=== PATIENT | male | born 1960 | race Caucasian/White ===

== ENCOUNTER 2016-11-18 11:32 | Emergency (ER) | payer MEDICAID, OTHER ==
[~2016-11-18] VITALS: Ht 165.1 cm; Wt 75.5 kg
[2016-11-18 11:44] VITALS: Ht 165.1 cm; Wt 75.5 kg
[2016-11-18] MEDS ORDERED: IBUPROFEN 600 MG TAB PO ONE (12:30)
--- NOTE | 2016-11-18 12:30 | ERD ---
ER Documentation Chief Complaint Date/Time DATE: 11/18/16 TIME: 12:27 Chief Complaint left hand laceration from a knife HPI 56-year-old otherwise healthy male presents to the emergency department following an injury which occurred while working today. Patient states that he was cutting drywall on a ceiling he accidentally lacerated his left dorsum of hand with a sharp knife. Patient states the laceration began bleeding immediately and has continued to bleed since. Patient rates his pain currently as a 4 out of 10 constant burning pain which is exacerbated by touch. Patient states he does not believe there is any piece of drywall or other foreign body that entered the wound. Patient denies any numbness, tingling, loss of sensation, wrist, or finger injury. Patient is unaware when his last tetanus shot was. ROS All systems reviewed and are negative except as per history of present illness. Medications Home Meds Active Scripts Cephalexin* (Keflex*) 500 Mg Capsule, 500 MG PO QID for 7 Days, CAP Prov:ARIEL HARRISON PA-C 11/18/16 Hydrocodone/Acetaminophen ([place] 10-325 Tablet) 1 Each Tablet, 1 TAB PO Q6H Y for PAIN, #7 TAB Prov:ARIEL HARRISON PA-C 11/18/16 Naproxen* (Naprosyn*) 500 Mg Tablet, 500 MG PO BID Y for PAIN AND/OR INFLAMMATION, #30 TAB Prov:ARIEL HARRISON PA-C 11/18/16 PMhx/Soc Medical and Surgical Hx: pt denies Medical Hx, pt denies Surgical Hx Physical Exam Vitals Vital Signs Date Time Temp Pulse Resp B/P Pulse Ox O2 Delivery O2 Flow Rate FiO2 11/18/16 11:44 98.5 94 18 169/94 97 Physical Exam Const: Well-developed, well-nourished, in no acute distress. Head: Atraumatic Eyes: Normal Conjunctiva ENT: Normal External Ears, Nose and Mouth. Neck: Full range of motion..~ No meningismus. Resp: Clear to auscultation bilaterally Cardio: Regular rate and rhythm, no murmurs Abd: Soft, non tender, non distended. Normal bowel sounds Skin: 1 cm linear laceration located to the dorsum of the left hand superior to the anatomical snuffbox. Wound is actively bleeding. No evidence of foreign body. Full range of motion performed at left wrist, MCP, PIP and DIP joints of the left upper extremity. Radial, median, and ulnar motor and sensory nerve function intact. 2. discrimination along radial and ulnar aspects of all 5 fingers. Brisk capillary refill. Radial pulse 1+ equal and bilateral. No cyanosis. No overlying cellulitis or evidence of abscess. Minor tenderness to palpation. No petechiae or rashes Back: No midline or flank tenderness Ext: No cyanosis, or edema Neur: Awake and alert Psych: Normal Mood and Affect Results 24 hrs Current Medications Medications (Trade) Dose Ordered Sig/Iglesia Route PRN Reason Start Time Stop Time Status Last Admin Dose Admin Ibuprofen (Motrin) 600 mg ONCE ONCE PO 11/18/16 12:30 11/18/16 12:31 DC 11/18/16 12:24 Lidocaine/ Epinephrine (Xylocaine 1%/ Epi (Mdv) 20 ml) 20 ml ONCE ONCE INJ 11/18/16 13:00 11/18/16 13:01 DC 11/18/16 13:14 Diphtheria/ Tetanus/Acell Pertussis (Adacel) 0.5 ml ONCE ONCE IM* 11/18/16 13:00 11/18/16 13:01 DC 11/18/16 13:15 Procedures/MDM PROCEDURE: XR Left Hand. CLINICAL INDICATION: Trauma with laceration. Left hand pain. TECHNIQUE: Three views. Frontal lateral and oblique images of the left hand were obtained. COMPARISON: No prior studies are available for comparison. FINDINGS: There is no fracture or dislocation. There is soft tissue swelling overlying the wrist. Articular surfaces are intact. There is no lytic or blastic lesion. There is no radiopaque foreign body. IMPRESSION: 1. Soft tissue swelling overlying the wrist. 2. Otherwise unremarkable images of the left hand with no fracture demonstrated. RPTAT: QQ .Vineet Morrison MD, MD Date Time Electronically viewed and signed by .Vineet Morrison MD, MD on 11/18/2016 14:11 .R/ CC: HARRISON,ARIEL M. PA-C X-ray Hand 3V interpreted by radiologist: Scaphoid: Normal Bones: No fracture Joints: No dislocation Foreign body: None Laceration Repair by me: Anesthesia: 1% lidocaine locally Location: Dorsum of left hand Tendon/Joint/Nerves: No obvious injury Foreign body: None detected after copious irrigation and exploration Technique: Simple Interrupted Sutures. 5-0 Prolene Complexity: No subcutaneous sutures/mucosal repair/ edge excision Post Closure Length: 1.5 cm Patient's bleeding was easily controlled in the department and there is no indication of anemia. No evidence of compartment syndrome, neurologic injury, vascular injury, open joint, tendon laceration, or foreign body. Patient is appropriate for outpatient follow up. 48 hour wound check. Scar minimization instructions given. Patient's pain well controlled while in the emergency department. X-rays negative for fracture. No evidence of tendon laceration as patient can perform full range of motion. Patient's sensation is intact and appears to have good perfusion of the distal extremity. Patient will be placed in a splint and instructions were given to return in 48 hours for a wound check. I will provide the patient with full active antibiotic therapy. Patient received tetanus booster while in the emergency department today. Strict return precautions discussed. Based on patient's history of present illness and physical examination the decision was made to discharge. The patient was re-evaluated after ED treatment and stabilizing measures, and symptoms have improved. There is no evidence of life threatening injuries or illnesses at this time. On re-examination, patient resting in no distress, stable vital signs, reports feeling better and safe for discharge with outpatient follow up with PMD in 1-2 days. Patient given return precautions. ARIEL HARRISON PA-C Nov 18, 2016 12:30
[2016-11-18] MEDS ORDERED: DIPHTH/TET/ACEL PERTUSS (ADULT) 0.5 ML VIAL IM* ONE (13:00)
[2016-11-18] MEDS ORDERED: LIDOCAINE 1%/EPI (MDV) 20 ML INJ INJ ONE (13:00)
--- NOTE | 2016-11-18 14:11 | RADRPT ---
PROCEDURE: XR Left Hand. CLINICAL INDICATION: Trauma with laceration. Left hand pain. TECHNIQUE: Three views. Frontal lateral and oblique images of the left hand were obtained. COMPARISON: No prior studies are available for comparison. FINDINGS: There is no fracture or dislocation. There is soft tissue swelling overlying the wrist. Articular surfaces are intact. There is no lytic or blastic lesion. There is no radiopaque foreign body. IMPRESSION: 1. Soft tissue swelling overlying the wrist. 2. Otherwise unremarkable images of the left hand with no fracture demonstrated. RPTAT: QQ .Vineet Morrison MD, Date Time Electronically viewed and signed by .Vineet Morrison MD, on 11/18/2016 14:11 .R/
[2016-11-18] MEDS ORDERED: NAPR-260 PO (14:25)
[2016-11-18] MEDS ORDERED: HYDR-902 PO (14:25)
[2016-11-18] MEDS ORDERED: CEPH-443 PO (14:25)
== END 2016-11-18 14:49 | disposition home or self-care (01) ==
LOC: FTE 11:32
DX: S61.412A Laceration without foreign body of left hand, initial encounter (principal); W26.0XXA Contact with knife, initial encounter; Y92.9 Unspecified place or not applicable; Z23 Encounter for immunization
CPT/HCPCS: 12001; 73130; 90471; 90715; Z7502; Z7610

== ENCOUNTER 2016-11-20 13:10 | Emergency (ER) | payer MEDICAID ==
[~2016-11-20] VITALS: Ht 157.5 cm; Wt 78.9 kg
[~2016-11-20 13:10] MED LIST: CEPH-443 PO; HYDR-902 PO; NAPR-260 PO
[2016-11-20 13:14] VITALS: Ht 157.5 cm; Wt 78.9 kg
--- NOTE | 2016-11-20 13:33 | ERD ---
ER Documentation Chief Complaint Date/Time DATE: 11/20/16 TIME: 13:31 Chief Complaint left hand wound check HPI 56-year-old male who sustained a laceration to his left hand. He presents for wound recheck. He denies any wound drainage or dehiscence, mild swelling. The patient denies any motor weakness. He states compliance with medical regimen. No other complaints. ROS All systems reviewed and are negative except as per history of present illness. Medications Home Meds Active Scripts Cephalexin* (Keflex*) 500 Mg Capsule, 500 MG PO QID for 7 Days, CAP Prov:ARIEL HARRISON PA-C 11/18/16 Hydrocodone/Acetaminophen ([place] 10-325 Tablet) 1 Each Tablet, 1 TAB PO Q6H Y for PAIN, #7 TAB Prov:ARIEL HARRISON PA-C 11/18/16 Naproxen* (Naprosyn*) 500 Mg Tablet, 500 MG PO BID Y for PAIN AND/OR INFLAMMATION, #30 TAB Prov:ARIEL HARRISON PA-C 11/18/16 Physical Exam Vitals Vital Signs Date Time Temp Pulse Resp B/P Pulse Ox O2 Delivery O2 Flow Rate FiO2 11/20/16 13:14 98.1 60 18 114/56 99 Physical Exam General: Well developed, well nourished, no acute distress Head: Normocephalic, atraumatic. Eyes: EOM intact ENT: Moist mucous membranes Neck: Full ROM Respiratory: No respiratory distress Cardiovascular: Good capillary refil Abdominal: Nondistended : Deferred MSK: Skin is documented below. The patient's left hand has intact radial, median, ulnar nerves. Soft tissues, no snuffbox tenderness. No ligamentous instability. No crepitus. Mild soft tissue swelling around the laceration itself Neurologic: Alert and oriented, moving all extremities, normal speech, steady gait Skin: Well-healing lacerations with sutures clean dry and intact. Psych: Normal mood Procedures/MDM The patient's wound is extremely well-appearing here in the emergency room. There are no signs or symptoms concerning for complication such as wound dehiscence, wound infection, cellulitis, or deep space infection. I discussed routine wound care as well as scar minimization techniques. The patient is safe for discharge with outpatient primary care follow-up as needed. The patient has no evidence of ligamentous or tendinous injury. No indication for immobilization. We discussed follow up with the patient's primary care doctor within 24 to 48 hours as needed. We also discussed return to the emergency room for worsening symptoms or worsening condition. Departure Diagnosis: Primary Impression: Encounter for wound re-check Additional Impression: Laceration of left hand Encounter type: subsequent encounter Qualified Code: S61.412D - Laceration of left hand, subsequent encounter Condition: Stable Patient Instructions: Wound Check, Lac F/U (No Infection) Referrals: [facility] YOU HAVE RECEIVED A MEDICAL SCREENING EXAM AND THE RESULTS INDICATE THAT YOU DO NOT HAVE A CONDITION THAT REQUIRES URGENT TREATMENT IN THE EMERGENCY DEPARTMENT. FURTHER EVALUATION AND TREATMENT OF YOUR CONDITION CAN WAIT UNTIL YOU ARE SEEN IN YOUR DOCTORS OFFICE WITHIN THE NEXT 1-2 DAYS. IT IS YOUR RESPONSIBILITY TO MAKE AN APPOINTMENT FOR FOLOW-UP CARE. IF YOU HAVE A PRIMARY DOCTOR --you should call your primary doctor and schedule an appointment IF YOU DO NOT HAVE A PRIMARY DOCTOR YOU CAN CALL OUR PHYSICIAN REFERRAL HOTLINE AT IF YOU CAN NOT AFFORD TO SEE A PHYSICIAN YOU CAN CHOSE FROM THE FOLLOWING [facility] [address] [facility]. [facility] [address] [facility] [facility] [address] [facility] [facility] [address] [facility] [facility] [address] [facility] [facility]. [address] [facility]. [facility] YOU HAVE RECEIVED A MEDICAL SCREENING EXAM AND THE RESULTS INDICATE THAT YOU DO NOT HAVE A CONDITION THAT REQUIRES URGENT TREATMENT IN THE EMERGENCY DEPARTMENT. FURTHER EVALUATION AND TREATMENT OF YOUR CONDITION CAN WAIT UNTIL YOU ARE SEEN IN YOUR DOCTORS OFFICE WITHIN THE NEXT 1-2 DAYS. IT IS YOUR RESPONSIBILITY TO MAKE AN APPOINTMENT FOR FOLOW-UP CARE. IF YOU HAVE A PRIMARY DOCTOR --you should call your primary doctor and schedule and appointment IF YOU DO NOT HAVE A PRIMARY DOCTOR YOU CAN CALL OUR PHYSICIAN REFERRAL HOTLINE AT . IF YOU CAN NOT AFFORD TO SEE A PHYSICIAN YOU CAN CHOSE FROM THE FOLLOWING [facility] INSTITUTIONS: [facility] [address] [place] [address] [facility] [address] [place] [address] [facility] [address] [place] [address] [facility] () Usted se olmstead hecho un examen mdico de control que le indica que no est en magaly condicin que requiera tratamiento urgente en el Departamento de Emergencia. Un estudio ms profundo y el tratamiento de pearce condicin pueden esperar sin ningn riesgo hasta que usted sea atendida/o en el consultorio de pearce mdico o magaly cl zay. Es responsabilidad suya arreglar magaly kim para el seguimiento del nupur. MANEJO DE CONDICIONES NO URGENTES EN EL FUTURO 1) Si usted tiene un mdico de atencin primaria: Usted debera llamar a pearce mdico de atencin primaria antes de venir al departamento de emergencia. Despus de las horas de consultorio, pearce doctor o pearce asociado/a est disponible por telfono. El mdico o enfermero de pepe en el servicio telefnico puede asesorarle por anam medio para atender el problema, o nupur contrario se puede programar magaly kim. 2) Si usted no tiene un mdico de atencin primaria: Llame al mdico o clnica de referencia que aparece abajo maite las horas de consultorio para hacer magaly kim para que le vean. CLINICAS: [facility] [phone] [address] [facility] [phone] [address] [facility] [phone] [facility] [phone] [address] [facility] [phone] [address] [facility] [phone] [address] [facility]. [facility] () Tai se olmstead hecho un examen mdico de control que le indica que no est en magaly condicin que requiera tratamiento urgente en el Departamento de Emergencia. Un estudio ms profundo y el tratamiento de pearce condicin pueden esperar sin ningn riesgo hasta que ted sea atendida/o en el consultorio de pearce mdico o magaly cl zay. Es responsabilidad suya arreglar magaly kim para el seguimiento del nupur. MANEJO DE CONDICIONES NO URGENTES EN EL FUTURO 1) Si usted tiene un mdico de atencin primaria: Tai debera llamar a pearce mdico de atencin primaria antes de venir al departamento de emergencia. Despus de las horas de consultorio, pearce doctor o pearce asociado/a est disponible por telfono. El mdico o enfermero de pepe en el servicio telefnico puede asesorarle por anam medio para atender el problema, o nupur contrario se puede programar magaly kim. 2) Si usted no tiene un mdico de atencin primaria: Llame al mdico o condado institucions de referencia que aparece abajo maite las horas de consultorio para hacer magaly kim para que le vean. SI USTED NO PUEDE PAGAR PARA ANAID UN MEDICO puede ir a: [facility] [address] [place] [address] [facility] [address] [place] [address] [facility] [address] [place] [address] [facility] [address] [place], [place] [id number] Additional Instructions: Llame al doctor nombrado abajo (Referral Sources) MAANA y gill magaly KIM PARA DENTRO DE MAGALY SEMANA. Dgale a la secretaria que nosotros le instruimos hacer esta kim.Avise o llame si pearce condicin se empeora antes de la kim. BLAYNE SOLORIO MD Nov 20, 2016 13:33
== END 2016-11-20 14:10 | disposition home or self-care (01) ==
LOC: FTE 13:10
DX: Z48.01 Encounter for change or removal of surgical wound dressing (principal); S61.412D Laceration without foreign body of left hand, subsequent encounter; X58.XXXA Exposure to other specified factors, initial encounter
CPT/HCPCS: 99281

== ENCOUNTER 2016-12-06 18:45 | Emergency (ER) | payer MEDICAID ==
[~2016-12-06] VITALS: Ht 167.6 cm; Wt 76.0 kg
[2016-12-06 18:54] VITALS: Ht 167.6 cm; Wt 76.0 kg
[2016-12-06] MEDS ORDERED: CEPH-443 PO (19:02)
--- NOTE | 2016-12-06 19:07 | ERD ---
ER Documentation Chief Complaint Date/Time DATE: 12/06/16 TIME: 19:05 Chief Complaint suture removal left hand HPI 48-year-old male presents here in emergency department for suture removal and wound check, patient had a suture placed and left hand after being lacerated 2 weeks ago. Patient has had the sutures on for 2 weeks now. Patient denies any discharge, patient denies any redness swelling. Patient denies any pain. Patient denies any giving of the wound. Patient denies any new injury. Patient denies any pain. ROS All systems reviewed and are negative except as per history of present illness. Medications Home Meds Active Scripts Cephalexin* (Keflex*) 500 Mg Capsule, 500 MG PO QID for 5 Days, CAP Prov:PEYOTN KINNEY NP 12/06/16 Cephalexin* (Keflex*) 500 Mg Capsule, 500 MG PO QID for 7 Days, CAP Prov:ARIEL HARRISON PA-C 11/18/16 Hydrocodone/Acetaminophen ([place] 10-325 Tablet) 1 Each Tablet, 1 TAB PO Q6H Y for PAIN, #7 TAB Prov:ARIEL HARRISON PA-C 11/18/16 Naproxen* (Naprosyn*) 500 Mg Tablet, 500 MG PO BID Y for PAIN AND/OR INFLAMMATION, #30 TAB Prov:ARIEL HARRISON PA-C 11/18/16 Allergies Allergies: Coded Allergies: No Known Allergy (Unverified , 12/06/16) PMhx/Soc Medical and Surgical Hx: pt denies Medical Hx, pt denies Surgical Hx Hx Alcohol Use: No Hx Substance Use: No Hx Tobacco Use: No FmHx Family History: No coronary disease, No diabetes, No other Physical Exam Vitals Vital Signs Date Time Temp Pulse Resp B/P Pulse Ox O2 Delivery O2 Flow Rate FiO2 12/06/16 18:54 97.2 83 20 132/82 100 Physical Exam GENERAL: The patient is well developed and appropriate for usual state of health, in no apparent distress. CHEST: Clear to auscultation bilaterally. There are no rales, wheezes or rhonchi. HEART: Regular rate and rhythm. No murmurs, clicks, rubs or gallops. No S3 or S4. ABDOMEN: Soft, nontender and nondistended. Good bowel sounds. No rebound or guarding. No gross peritonitis. No gross organomegaly or masses. No Loo sign or McBurney point tenderness. BACK: No midline or flank tenderness. EXTREMITIES: Equal pulses bilaterally. There is no peripheral clubbing, cyanosis or edema. No focal swelling or erythema. Full range of motion. Grossly neurovascularly intact. NEURO: Alert and oriented. Cranial nerves 2-12 intact. Motor strength in all 4 extremities with 5/5 strength. Sensation grossly intact. Normal speech and gait. SKIN: Noted laceration wound in the left hand to be healing well, sutures are in place, no pustular discharge, no erythema, no gaping of the wound. There is no apparent rash or petechia. The skin is warm and dry. HEMATOLOGIC AND LYMPHATIC: There is no evidence of excessive bruising or lymphedema. No gross cervical, axillary, or inguinal lymphadenopathy. Procedures/MDM Procedure note: After patient's verbal consent, the wound was cleaned with alcohol swab, after cleaning the wound, the sutures in place were removed without any difficulty, healing well, does not have any gaping of the wound, no symptoms of any infection. Medical decision making: Patient had sutures removed, it was removed without any difficulty, considering that the patient has had the sutures for 2 weeks, patient will be given Keflex to prevent infection of affected area, and a sense of neurovascular compromise. No symptoms of any sepsis. No symptoms of any abscess or cellulitis. Patient was advised to follow up with primary care doctor as necessary return to emergency department for any worsening symptoms. Departure Diagnosis: Primary Impression: Encounter for removal of sutures Condition: Stable Patient Instructions: Suture Removal, No Complication PEYTON KINNEY NP Dec 06, 2016 19:07
== END 2016-12-06 19:07 | disposition home or self-care (01) ==
LOC: E/R 18:45
DX: Z48.02 Encounter for removal of sutures (principal)
CPT/HCPCS: 99283